=== PATIENT | female | born 1960 | race African-American/Black ===

== ENCOUNTER 2019-08-10 04:08 | Emergency (ER) | payer OTHER ==
[~2019-08-10] VITALS: Ht 172.7 cm; Wt 128.8 kg
[~2019-08-10 04:08] MED LIST: ALLERGY10 M1 PO; AUGMENTIN 875875 MG PO; CARVEDILOL12.5 MG PO; CARVEDILOL25 MG PO; CYMBALTA20 MG PO; CYMBALTA60 MG PO; DIFLUCAN150 MG PO; DUONEB 2.5-0.5 M3 ML INH; HUMALOG PE100 UNIT/M SC; K-DUR10 MEQ PO; LANTUS SOL100 UNIT/1 SQ; LASIX 20 MG TAB20 MG PO; PANTOPRAZOLE SO40 M1 PO; PREDNISONE 20 M20 MG PO; VISTARIL 25 MG25 M1 PO
[2019-08-10 04:14] VITALS: BP 163/82
[2019-08-10] MEDS ORDERED: MOBIC15 MG PO (04:53)
== END 2019-08-10 05:05 | disposition home or self-care (01) ==
LOC: ER 04:08
DX: M72.2 Plantar fascial fibromatosis (principal); M06.9 Rheumatoid arthritis, unspecified; I11.0 Hypertensive heart disease with heart failure; I50.9 Heart failure, unspecified; E11.9 Type 2 diabetes mellitus without complications; M79.7 Fibromyalgia; Z79.899 Other long term (current) drug therapy; Z88.8 Allergy status to other drugs, medicaments and biological substances; Z91.041 Radiographic dye allergy status; Z88.6 Allergy status to analgesic agent; Z91.013 Allergy to seafood